=== PATIENT | male | born 1980 | race Caucasian/White ===

== ENCOUNTER 2017-04-09 09:30 | Emergency (ER) | payer MEDICAID ==
[2017-04-09 09:36] VITALS: TEMP 98.1
--- NOTE | 2017-04-09 10:58 | EDPHY ---
H & P Smoking Status: Current every day smoker Time Seen by Provider: 04/09/17 09:49 HPI/ROS: CHIEF COMPLAINT: Suicidal, depression HISTORY OF PRESENT ILLNESS: 36-year-old male presents to the emergency department feeling depressed and suicidal. He has a history of bipolar and has been off medications for over 1 year. Does drink alcohol occasionally and he states when he does drink alcohol that he abuses cocaine and methamphetamines. Last use of methamphetamines was 3 days ago and last use of cocaine was 2 days ago. Patient is new to [place] and does not have a primary care provider. He would like to get restarted on his medications. He is feeling depressed and suicidal. He has heard voices in the past although he thinks that this was may be from lack of sleep rather than his mental illness. He denies homicidal ideation. Denies visual hallucinations. He has not been sleeping well over last few days. He denies any other complaints. REVIEW OF SYSTEMS: Constitutional: No fever, no chills. Eyes: No double or blurry vision. ENT: No sore throat. Respiratory: No cough, no shortness of breath. Cardiac: No chest pain. Gastrointestinal: No abdominal pain, vomiting or diarrhea. Genitourinary: No dysuria. Musculoskeletal: No neck or back pain. Skin: No rashes. Neurological: No headache. (Meghana Arboleda) Past Medical/Surgical History: Bipolar (Meghana Arboleda) Social History: Homeless from [place] (Meghana Arboleda) Physical Exam: General Appearance: Alert, no distress. Afebrile. No apparent distress. Cooperative. Eyes: Pupils equal and round. Extraocular motions are all intact. ENT: Mouth: Mucous membranes moist. Respiratory: No wheezing, rhonchi, or rales, lungs are clear to auscultation. Cardiovascular: Regular rate and rhythm. Gastrointestinal: Abdomen is soft and nontender, no masses, no rebound or guarding, bowel sounds normal. Neurological: Alert and oriented x 3, cranial nerves II through XII grossly intact Skin: Warm and dry, no rashes. Musculoskeletal: Nontender to palpate along the cervical, thoracic or lumbar spine. Neck is supple. Extremities: Full range of motion and no peripheral edema. Psychiatric: Patient is oriented X 3, there is no agitation. (Meghana Arboleda) Constitutional: Initial Vital Signs Temperature (C) 36.7 C 04/09/17 09:33 Heart Rate 67 04/09/17 09:33 Respiratory Rate 17 04/09/17 09:33 Blood Pressure 116/93 H 04/09/17 09:33 O2 Sat (%) 96 04/09/17 09:33 O2 Delivery Mode Room Air Allergies/Adverse Reactions: No Known Allergies Allergy (Unverified 04/09/17 09:32) Home Medications: Medication Instructions Recorded NK [No Known Home Meds] 04/09/17 Medical Decision Making ED Course/Re-evaluation: 36-year-old male presents to the emergency department feeling depressed and suicidal. The patient has a history of substance abuse as last use of cocaine was 2 days ago and last use of methamphetamines is 3 days ago. The patient was placed on a detainer. He was medically cleared and evaluated by mental health. They are going [facility]. The patient told power [employer] sawyer that the only reason he wanted inpatient placement was because he was homeless. He has agreed to go to the [facility] recovery [facility]. He is no longer feeling suicidal. (Meghana Arboleda) Differential Diagnosis: The patient was evaluated and managed by the physician's appeals assistant. My cosignature indicates that I reviewed the chart and I agree with the findings and plan of care as documented. I am the secondary supervising physician. ( Sudha Gates) Depression including functional and major depression, situational depression, medication side effect, drugs and alcohol abuse. (Meghana Arboleda) - Data Points Laboratory Results: Laboratory Results 04/09/17 10:54 04/09/17 10:54 04/09/17 04/09/17 04/09/17 10:54 10:54 10:54 WBC 6.91 10^3/uL 10^3/uL (3.80-9.50) RBC 4.79 10^6/uL 10^6/uL (4.40-6.38) Hgb 14.6 g/dL g/dL (13.7-17.5) Hct 42.4 % % (40.0-51.0) MCV 88.5 fL fL (81.5-99.8) MCH 30.5 pg pg (27.9-34.1) MCHC 34.4 g/dL g/dL (32.4-36.7) RDW 12.5 % % (11.5-15.2) Plt Count 303 10^3/uL 10^3/uL (150-400) MPV 10.2 fL fL (8.7-11.7) Neut % (Auto) 57.2 % % (39.3-74.2) Lymph % (Auto) 27.8 % % (15.0-45.0) [place] % (Auto) 9.0 % % (4.5-13.0) Eos % (Auto) 5.1 % % (0.6-7.6) Baso % (Auto) 0.6 % % (0.3-1.7) Nucleat RBC Rel Count 0.0 % % (0.0-0.2) Absolute Neuts (auto) 3.96 10^3/uL 10^3/uL (1.70-6.50) Absolute Lymphs (auto) 1.92 10^3/uL 10^3/uL (1.00-3.00) Absolute Monos (auto) 0.62 10^3/uL 10^3/uL (0.30-0.80) Absolute Eos (auto) 0.35 10^3/uL 10^3/uL (0.03-0.40) Absolute Basos (auto) 0.04 10^3/uL 10^3/uL (0.02-0.10) Absolute Nucleated RBC 0.00 10^3/uL 10^3/uL (0-0.01) Immature Gran % 0.3 % % (0.0-1.1) Immature Gran # 0.02 10^3/uL 10^3/uL (0.00-0.10) Sodium 142 mEq/L mEq/L (134-144) Potassium 4.4 mEq/L mEq/L (3.5-5.2) Chloride 106 mEq/L mEq/L (97-110) Carbon Dioxide 25 mEq/l mEq/l (22-31) Anion Gap 11 mEq/L mEq/L (8-16) BUN 21 mg/dL mg/dL (7-23) Creatinine 0.8 mg/dL mg/dL (0.7-1.3) Estimated GFR > 60 Glucose 95 mg/dL mg/dL (70-100) Calcium 9.3 mg/dL mg/dL (8.5-10.4) TSH 1.670 uIU/mL uIU/mL (0.465-4.680) Urine Opiates Screen NEGATIVE (NEGATIVE) Urine Barbiturates NEGATIVE (NEGATIVE) Ur Phencyclidine Scrn NEGATIVE (NEGATIVE) Ur Amphetamine Screen NEGATIVE (NEGATIVE) U Benzodiazepines Scrn NEGATIVE (NEGATIVE) Urine Cocaine Screen NON-NEGATIVE H (NEGATIVE) U Marijuana (THC) Screen NON-NEGATIVE H (NEGATIVE) Ethyl Alcohol < 10 mg/dL mg/dL (0-10) Departure - Departure Disposition: Home, Routine, Self-Care Clinical Impression: Bipolar 1 disorder Condition: Good Instructions: Bipolar Disorder (ED) Additional Instructions: Follow up per mental health's instructions. Return if you develop recurring suicidal thoughts or if you have any other concerns. Referrals: [facility] [Outside] - As per Instructions
[2017-04-09 11:01] LABS: % IMMATURE GRANULYOCYTES 0.3 % (0.0-1.1); ABSOLUTE IMMATURE GRANULOCYTES 0.02 10^3/uL (0.00-0.10); ADD DIFF? NO; ADD MORPH? NO; ADD SCAN? NO; ATYPICAL LYMPHOCYTE FLAG 30 (0-99); FRAGMENT RBC FLAG 0 (0-99); HEMATOCRIT 42.4 % (40.0-51.0); HEMOGLOBIN 14.6 g/dL (13.7-17.5); LEFT SHIFT FLG 0 (0-99); LIPEMIA HEMOLYSIS FLAG 90 (0-99); MEAN CELL HEMOGLOBIN 30.5 pg (27.9-34.1); MEAN CELL HEMOGLOBIN CONCENTR. 34.4 g/dL (32.4-36.7); MEAN CELL VOLUME 88.5 fL (81.5-99.8); MEAN PLATELET VOLUME 10.2 fL (8.7-11.7); PLATELET CLUMPS FLAG 40 (0-99); PLATELET COUNT 303 10^3/uL (150-400); RED BLOOD CELL COUNT 4.79 10^6/uL (4.40-6.38); RED CELL DISTRIBUTION WIDTH 12.5 % (11.5-15.2)
[2017-04-09 11:23] LABS: ANION GAP 11 mEq/L (8-16); CALCIUM 9.3 mg/dL (8.5-10.4); CARBON DIOXIDE 25 mEq/l (22-31); CHLORIDE 106 mEq/L (97-110); CREATININE 0.8 mg/dL (0.7-1.3); ETHANOL SERUM < 10 mg/dL (0-10); GLOMERULAR FILTRATION RATE > 60; GLUCOSE 95 mg/dL (70-100); POTASSIUM 4.4 mEq/L (3.5-5.2); SODIUM 142 mEq/L (134-144)
[2017-04-09 16:07] VITALS: BP 112/65; PULSE 73; RESP 18; O2SAT 97
== END 2017-04-09 16:15 | disposition home or self-care (01) ==
DX: F31.9 Bipolar disorder, unspecified (principal); F17.200 Nicotine dependence, unspecified, uncomplicated
CPT/HCPCS: 80305; G0480

== ENCOUNTER 2017-11-22 20:54 | Emergency (ER) | payer MEDICAID ==
[2017-11-22 21:03] VITALS: TEMP 97.7
[2017-11-22] MEDS ORDERED: LORAZEPAM 1 MG PREPACK#4 BTL TAKEHOME ONE (21:22)
[2017-11-22] MEDS ORDERED: LORazepam 1 MG TAB PO ONE (21:22)
--- NOTE | 2017-11-22 21:22 | EDPHY ---
H & P Time Seen by Provider: 11/22/17 21:09 HPI/ROS: CHIEF COMPLAINT: "I need help getting off these drugs" HISTORY OF PRESENT ILLNESS: Patient is a 36-year-old male who presents to the emergency department requesting help to detox from multiple drugs. The patient states he drinks alcohol, uses methamphetamine and LSD. He feels as though he can't think straight. He requests detox. He denies any recent trauma or injuries. He has no chest pain or shortness of breath. No abdominal pain. REVIEW OF SYSTEMS: My complete review of systems is negative except as mentioned in the HPI. Past Medical/Surgical History: Includes bipolar disorder Social history: Includes methamphetamine use, LSD use, alcohol abuse Smoking Status: Current every day smoker Physical Exam: Vitals noted GENERAL: Well-appearing, in no acute distress, alert. HEENT: Eyes normal to inspection, normal pharynx, no signs of dehydration. NECK: No thyromegaly, no lymphadenopathy, supple. RESPIRATORY: Clear to auscultation bilaterally, no rales, rhonchi or wheezing. CVS: Regular rate and rhythm, no rubs, murmurs, or gallops. ABDOMEN: Soft, nontender, nondistended, no organomegaly. BACK: Normal to inspection, no CVA tenderness. SKIN: Normal color, no rash, warm, dry. No pallor. EXTREMITIES: No pedal edema, no calf tenderness, no Homans sign or cords, no joint swelling. NEURO/PSYCH: Alert and oriented x3, normal mood and affect, normal motor sensory exam. No obvious cranial nerve deficit. Constitutional: Initial Vital Signs Temperature (C) 36.5 C 11/22/17 20:59 Heart Rate 98 11/22/17 20:59 Respiratory Rate 20 11/22/17 20:59 Blood Pressure 147/83 H 11/22/17 20:59 O2 Sat (%) 98 11/22/17 20:59 O2 Delivery Mode Room Air Allergies/Adverse Reactions: No Known Allergies Allergy (Unverified 04/09/17 09:32) Home Medications: Medication Instructions Recorded NK [No Known Home Meds] 04/09/17 Medical Decision Making ED Course/Re-evaluation: In the emergency department I discussed possible etiologies with the patient. I discussed treatment options. The patient agrees to go to the [facility]. [facility] was contacted and they will accept the patient. The patient was given Ativan 1 mg orally. He is given a cab voucher as well as medication for treatment at [facility]. Differential Diagnosis: My differential includes but is not limited to alcohol abuse, drug abuse, withdrawal, drug-seeking behavior Departure - Departure Disposition: Home, Routine, Self-Care Clinical Impression: Methamphetamine abuse, Lysergic acid diethylamide (LSD) use disorder, moderate , Alcohol abuse Condition: Good Instructions: Abuse of Alcohol (ED), Methamphetamine Abuse (ED) Referrals: [facility],. [Clinic] - 2-3 days without fail
[2017-11-22 22:28] VITALS: BP 130/78; PULSE 78; RESP 16; O2SAT 97
== END 2017-11-22 22:23 | disposition home or self-care (01) ==
DX: F10.10 Alcohol abuse, uncomplicated (principal); F16.20 Hallucinogen dependence, uncomplicated; F17.200 Nicotine dependence, unspecified, uncomplicated; F15.10 Other stimulant abuse, uncomplicated